=== PATIENT | male | born 1945 | race Caucasian/White ===

== ENCOUNTER 2018-05-31 13:25 | Inpatient (IN) ==
[2018-05-31] MEDS ORDERED: SODIUM CHLORIDE 0.9% 500 ML IV SCH ×2 (14:00→22:00)
[2018-05-31] MEDS ORDERED: dilTIAZem HCl 5 MG/ML 5 ML VIAL IV STA ×2 (14:00→15:41)
[2018-05-31 14:09] LABS: Basophils # (auto) 0.05 K/uL (0-0.2); Basophils % (auto) 0.5 %; Eosinophils # (auto) 0.02 K/uL (0-0.5); Eosinophils % (auto) 0.2 %; Hematocrit (blood only) 41.4 % (42-52); Immature Granulocytes # (auto) 0.02 K/uL (0.00-0.02); Immature Granulocytes % (auto) 0.2 %; Lymphocytes # (auto) 1.25 K/uL (1.2-3.4); Lymphocytes % (auto) 13.4 %; Mean Corpuscular Hgb Conc 33.8 g/dL (32-36); Mean Platelet Volume 9.7 fL (7.4-10.4); Monocytes # (auto) 0.69 K/uL (0.11-0.59); Monocytes % (auto) 7.4 %; Neutrophils # (auto) 7.32 K/uL (1.4-6.5); Neutrophils % (auto) 78.3 %; Platelet Count 399 K/uL (130-400); RDW Coefficient of Variation 15.3 % (11.5-14.5); RDW Standard Deviation 41.8 fL (36.4-46.3); Red Blood Count 5.52 M/uL (4.7-6.1); White Blood Count 9.35 K/uL (4.8-10.8)
[2018-05-31 14:23] LABS: INR 1.7 (0.9-1.1); Partial Thromboplastin Ratio 1.3; Partial Thromboplastin Time 32.8 Seconds (21.0-31.0); Prothrombin Time 17.1 Seconds (9.0-12.0)
[2018-05-31 14:24] LABS: Albumin Level 3.3 gm/dl (3.4-5.0); BUN Creatinine Ratio 24.4 (10-20); Creatinine Clr Calc Pharmacy 52.7 ml/min; Est GFR (African American) 58.9; Est GFR (Non-African American) 50.8; Magnesium 2.2 mg/dl (1.8-2.4); Potassium 4.5 mmol/L (3.5-5.1)
--- NOTE | 2018-05-31 14:31 | XRay Report ---
XR chest 1V portable CLINICAL HISTORY: weakness dyspnea COMPARISON STUDY: No previous studies for comparison. FINDINGS: Moderate cardiomegaly. Prior median sternotomy. Right upper lobe infiltrate. Minimal infilt rative change right base. Left lung is clear. IMPRESSION: 1. Right upper lobe infiltrate. 2. Minimal interstitial infiltrate right base. 3. Mild cardia megaly. The above report was generated using voice recognition software. It may contain grammatical, syntax or spelling errors. Electronically signed by: Singh Case M.D. 05/31/2018 2:30 PM
[2018-05-31 14:36] LABS: Albumin Globulin Ratio 0.7 (0.9-2); Bilirubin,Total 1.7 mg/dl (0.2-1); Globulin 4.4 gm/dl (2.5-4.0); Total Protein 7.7 gm/dl (6.4-8.2); Troponin I 0.128 ng/ml (0-0.045)
--- NOTE | 2018-05-31 14:37 | Emergency Department Note ---
Entered by Kevin Newell acting as a scribe for History of Present Illness General Chief complaint: Cardiac Assessment Stated complaint: AFIB Source: patient Limitations: no limitations History of Present Illness Provider complaint: Palpitations Onset (ago): week(s) (1) Location: chest Pain Consistency: + constant Maximum Pain Intensity: 6 Quality: + other (Palpitations) Associated symptoms: + shortness of breath Treatments prior to arrival: none The patient is a 72 year old male who presents to the Emergency Room with complaints of constant palpitations for the past week. The patient states that "My a-fib and shortness of breath has been driving me crazy." He notes that he developed influenza-like symptoms such as fever, cough, diarrhea, and vomiting 1 week ago, which is when his current symptoms began. He has gone into atrial fibrillation intermittently for the past several years and knows when he goes into the irregular rhythm. He has felt like he has been in atrial fibrillation for the past week. He has never been cardioverted to resolve his atrial fibrillation. The patient has a significant cardiac history including his first heart attack at 37 years of age. He has had cardiac bypass surgery as well. The patient is on Coumadin. He is a former smoker. Home Medications Home Medications Medication Instructions Recorded Confirmed Type aspirin [Aspirin Low Dose] 81 mg PO DAILY 05/31/18 05/31/18 History digoxin [Digox] 250 mcg PO DAILY 05/31/18 05/31/18 History escitalopram oxalate [Lexapro] 20 mg PO DAILY 05/31/18 05/31/18 History fluticasone [Flonase Allergy 2 spray INTRANASAL DAILY 05/31/18 05/31/18 History Relief] furosemide [Lasix] 40 mg PO DAILY PRN 05/31/18 05/31/18 History insulin glargine [Lantus U-100 100 unit SUBCUT QPM 05/31/18 05/31/18 History Insulin] isosorbide mononitrate 30 mg PO BID 05/31/18 05/31/18 History lisinopril 20 mg PO DAILY 05/31/18 05/31/18 History lorazepam [Ativan] 1 mg PO Q8 PRN 05/31/18 05/31/18 History metformin [Glucophage] 1,000 mg PO BID 05/31/18 05/31/18 History metoprolol tartrate 100 mg PO BID 05/31/18 05/31/18 History morphine [MS Contin] 30 mg PO TID 05/31/18 05/31/18 History nitroglycerin [Nitrostat] 0.4 mg SUBLINGUAL UD PRN 05/31/18 05/31/18 History warfarin [Coumadin] 5 mg PO [id number] 05/31/18 05/31/18 History warfarin [Coumadin] 7.5 mg PO WK 05/31/18 05/31/18 History Allergies Allergy/AdvReac Type Severity Reaction Status Date / Time simvastatin AdvReac Severe leg pain Verified 05/31/18 16:23 Past Med/Surg History Medical History Anxiety Asthma CHF (congestive heart failure) COPD (chronic obstructive pulmonary disease) Depression Diabetes Hypertension Myocardial infarction Surgical History Hx of heart bypass surgery Social History marital status: Current Living Situation: Spouse current occupational status: retired Other Information That Helps Us Care for You: No Feels Safe at Home: Yes Safety Concerns: Feels Safe At This Time Smoking Status: Former smoker Do You Dip or Chew Tobacco: No Second Hand Exposure: No Tobacco Cessation Education Requested by Patient: No Hx Alcohol Use: No Hx Substance Use: No Beliefs That Will Affect Care: None Preferred Language: Jordanian Communication Ability: Effective Patient Access Associate Required: No Review of Systems See HPI for pertinent positives & negatives. and A total of 10 systems reviewed and were otherwise negative Physical Exam Vital Signs Vital Signs - 24 hr 05/31/18 13:28 05/31/18 13:40 05/31/18 13:45 Temperature 36.6 C Temperature Source Oral Sepsis Recent Fever Within 48 Hours No Sepsis New/Unexplained Change in Mental Status No Sepsis Action Taken by Nursing No Action Required Pulse Rate 101 H Pulse Rate [Left Finger] Pulse Rhythm [Left Finger] Pulse Strength [Left Finger] Respiratory Rate 20 Respiratory Effort / Characteristics Short of Breath Respiratory Depth Normal Respiratory Pattern Blood Pressure 124/99 Blood Pressure [Right Arm] Blood Pressure Mean 107 Blood Pressure Mean [Right Arm] Blood Pressure Position [Right Arm] Pulse Oximetry 97 96 Oxygen Delivery Method Room Air Room Air 05/31/18 13:49 05/31/18 13:54 05/31/18 14:00 Temperature Temperature Source Sepsis Recent Fever Within 48 Hours Sepsis New/Unexplained Change in Mental Status Sepsis Action Taken by Nursing Pulse Rate 129 H 148 H 138 H Pulse Rate [Left Finger] Pulse Rhythm [Left Finger] Pulse Strength [Left Finger] Respiratory Rate 14 19 23 Respiratory Effort / Characteristics Respiratory Depth Respiratory Pattern Blood Pressure 142/86 H Blood Pressure [Right Arm] Blood Pressure Mean 104 Blood Pressure Mean [Right Arm] Blood Pressure Position [Right Arm] Pulse Oximetry 97 97 97 Oxygen Delivery Method Room Air Room Air Room Air 05/31/18 14:31 05/31/18 15:00 05/31/18 15:02 Temperature Temperature Source Sepsis Recent Fever Within 48 Hours Sepsis New/Unexplained Change in Mental Status Sepsis Action Taken by Nursing Pulse Rate 117 H 114 H 120 H Pulse Rate [Left Finger] Pulse Rhythm [Left Finger] Pulse Strength [Left Finger] Respiratory Rate 18 23 26 H Respiratory Effort / Characteristics Respiratory Depth Respiratory Pattern Blood Pressure 128/117 H 114/75 Blood Pressure [Right Arm] Blood Pressure Mean 120 88 Blood Pressure Mean [Right Arm] Blood Pressure Position [Right Arm] Pulse Oximetry 97 97 95 Oxygen Delivery Method Room Air Room Air Room Air 05/31/18 15:03 05/31/18 15:31 05/31/18 16:00 Temperature Temperature Source Sepsis Recent Fever Within 48 Hours Sepsis New/Unexplained Change in Mental Status Sepsis Action Taken by Nursing Pulse Rate 117 H 130 H 124 H Pulse Rate [Left Finger] Pulse Rhythm [Left Finger] Pulse Strength [Left Finger] Respiratory Rate 19 15 20 Respiratory Effort / Characteristics Respiratory Depth Respiratory Pattern Blood Pressure 104/75 113/82 Blood Pressure [Right Arm] Blood Pressure Mean 84 92 Blood Pressure Mean [Right Arm] Blood Pressure Position [Right Arm] Pulse Oximetry 95 93 96 Oxygen Delivery Method 05/31/18 16:01 05/31/18 16:09 05/31/18 16:30 Temperature Temperature Source Sepsis Recent Fever Within 48 Hours Sepsis New/Unexplained Change in Mental Status Sepsis Action Taken by Nursing Pulse Rate 136 H 121 H Pulse Rate [Left Finger] 116 H Pulse Rhythm [Left Finger] Regular Pulse Strength [Left Finger] Normal Respiratory Rate 16 20 15 Respiratory Effort / Characteristics Non-Labored Respiratory Depth Normal Respiratory Pattern Regular Blood Pressure 105/78 Blood Pressure [Right Arm] 105/78 Blood Pressure Mean 87 Blood Pressure Mean [Right Arm] 87 Blood Pressure Position [Right Arm] Lying Pulse Oximetry 93 96 93 Oxygen Delivery Method Room Air 05/31/18 16:32 05/31/18 17:20 05/31/18 17:30 Temperature Temperature Source Sepsis Recent Fever Within 48 Hours Sepsis New/Unexplained Change in Mental Status Sepsis Action Taken by Nursing Pulse Rate 135 H 120 H Pulse Rate [Left Finger] Pulse Rhythm [Left Finger] Pulse Strength [Left Finger] Respiratory Rate 15 19 Respiratory Effort / Characteristics Spontaneous Respiratory Depth Normal Respiratory Pattern Regular Blood Pressure 134/78 Blood Pressure [Right Arm] Blood Pressure Mean 96 Blood Pressure Mean [Right Arm] Blood Pressure Position [Right Arm] Pulse Oximetry 91 96 Oxygen Delivery Method Room Air 05/31/18 17:44 05/31/18 18:00 05/31/18 18:01 Temperature Temperature Source Sepsis Recent Fever Within 48 Hours Sepsis New/Unexplained Change in Mental Status Sepsis Action Taken by Nursing Pulse Rate 130 H 127 H 122 H Pulse Rate [Left Finger] Pulse Rhythm [Left Finger] Pulse Strength [Left Finger] Respiratory Rate 20 22 23 Respiratory Effort / Characteristics Respiratory Depth Respiratory Pattern Blood Pressure 115/91 87/82 L Blood Pressure [Right Arm] Blood Pressure Mean 99 83 Blood Pressure Mean [Right Arm] Blood Pressure Position [Right Arm] Pulse Oximetry 97 96 94 Oxygen Delivery Method 05/31/18 18:30 05/31/18 19:06 05/31/18 20:20 Temperature Temperature Source Sepsis Recent Fever Within 48 Hours Sepsis New/Unexplained Change in Mental Status Sepsis Action Taken by Nursing Pulse Rate 117 H 113 H Pulse Rate [Left Finger] Pulse Rhythm [Left Finger] Pulse Strength [Left Finger] Respiratory Rate 19 20 Respiratory Effort / Characteristics Non-Labored SOB on Exertion Respiratory Depth Normal Respiratory Pattern Blood Pressure 119/86 Blood Pressure [Right Arm] Blood Pressure Mean Blood Pressure Mean [Right Arm] Blood Pressure Position [Right Arm] Pulse Oximetry 93 94 Oxygen Delivery Method Room Air Room Air Room Air 05/31/18 20:26 05/31/18 20:29 05/31/18 21:09 Temperature 36.9 C Temperature Source Oral Sepsis Recent Fever Within 48 Hours Sepsis New/Unexplained Change in Mental Status Sepsis Action Taken by Nursing Pulse Rate 135 H 135 H Pulse Rate [Left Finger] 135 H Pulse Rhythm [Left Finger] Irregular Pulse Strength [Left Finger] Respiratory Rate 22 Respiratory Effort / Characteristics SOB on Exertion Respiratory Depth Respiratory Pattern Blood Pressure Blood Pressure [Right Arm] 143/65 H Blood Pressure Mean Blood Pressure Mean [Right Arm] 91 Blood Pressure Position [Right Arm] Lying Pulse Oximetry 99 Oxygen Delivery Method Room Air GENERAL: Patient is awake alert in no acute distress patient is resting comfortably and showing no signs of anxiety EYES: The conjunctivae are clear. The pupils are round and reactive. EARS, NOSE, MOUTH AND THROAT: The nose is without any evidence of any deformity. Mucous membranes are moist tongue is midline NECK: The neck is nontender and supple. RESPIRATORY: Normal respiratory effort is noted. There are rales at both bases. CARDIOVASCULAR: Irregular rhythm with tachycardic rate was noted. No definite murmur was noted. GASTROINTESTINAL: The abdomen is soft. Bowel sounds are present in all quadrants. Abdomen is nontender PELVIS: The Pelvis is stable. No tenderness to palpation is noted. BACK: No midline tenderness or or step-off noted range of motion in flexion extension as well as rotation no signs of muscle spasm noted MUSCULOSKELETAL/EXTREMITIES: There is no evidence of gross deformity full range of motion is noted in the hips and shoulders SKIN: There is no obvious evidence of any rash. Pedal edema was noted bilaterally. NEUROLOGIC: Patient is awake alert and oriented x3. Course 1354: Past medical records reviewed. The patient was evaluated in room B7, and a complete history and physical examination were performed. 1539: I updated the patient at this time. He is agreeable to an inpatient stay. 1541: I reviewed the patient's case with Sonal Johnson PA-C. She will evaluate the patient for further management. Consultations Consultation #1: 1541: I reviewed the patient's case with Sonal Johnson PA-C. She will evaluate the patient for further management. Administered Medications Doxycycline Hyclate (Vibramycin) 100 mg PO BID [facility] Stop: 06/07/18 20:59 Last Admin: 05/31/18 21:11 Dose: 100 mg Heparin Sodium (Porcine) (Heparin Sodium (Porcine)) 5,000 units SQ Q8 [facility] Stop: 06/30/18 21:59 Last Admin: 05/31/18 21:09 Dose: 5,000 units Sodium Chloride (Nss) 500 mls @ 80 mls/hr IV .Q6H15M [facility] Stop: 06/01/18 04:14 Last Admin: 05/31/18 22:01 Dose: 80 mls/hr Insulin Aspart (Novolog Flexpen) 0 units SC ACHS [facility]; Protocol Stop: 06/30/18 20:59 Last Admin: 05/31/18 21:13 Dose: 9 units Isosorbide Mononitrate (Imdur Extended Rel) 30 mg PO BID [facility] Stop: 06/30/18 20:59 Last Admin: 05/31/18 21:11 Dose: 30 mg Metoprolol Tartrate (Lopressor) 100 mg PO BID [facility] Stop: 06/30/18 20:59 Last Admin: 05/31/18 21:11 Dose: 100 mg Warfarin Sodium (Coumadin) 6 mg PO DAILY@1600 [facility] Stop: 06/30/18 19:53 Last Admin: 05/31/18 21:10 Dose: 6 mg Discontinued Medications Diltiazem HCl (Cardizem) 10 mg IV NOW STA Stop: 05/31/18 14:01 Last Admin: 05/31/18 14:09 Dose: 10 mg Diltiazem HCl (Cardizem) 10 mg IV NOW STA Stop: 05/31/18 15:42 Last Admin: 05/31/18 16:00 Dose: 10 mg Sodium Chloride (Nss) 500 mls @ 999 mls/hr IV .Q31M [facility] Stop: 05/31/18 14:30 Last Infusion: 05/31/18 14:36 Dose: 0 mls/hr Admin: 05/31/18 14:10 Dose: 999 mls/hr Sodium Chloride (Nss 1000ml) 500 mls @ 999 mls/hr IV .Q31M ONE Stop: 05/31/18 15:51 Last Infusion: 05/31/18 15:55 Dose: 0 mls/hr Admin: 05/31/18 15:32 Dose: 999 mls/hr Levofloxacin/Dextrose (Levaquin/D5w) 750 mg in 150 mls @ 100 mls/hr IV NOW STA Stop: 05/31/18 17:10 Last Infusion: 05/31/18 17:32 Dose: 0 mls/hr Admin: 05/31/18 16:00 Dose: 100 mls/hr Digoxin 125 mcg/ Syringe 10 mls @ 2 mls/min IV NOW STA Stop: 05/31/18 20:35 Last Admin: 05/31/18 21:09 Dose: 2 mls/min Insulin Glargine (Lantus Solostar Pen) 20 units SC NOW STA; Protocol Stop: 05/31/18 21:02 Last Admin: 05/31/18 21:43 Dose: 20 units Insulin Human Regular (Novolin R U-100 Per Unit) 10 units IV NOW STA Stop: 05/31/18 18:47 Last Admin: 05/31/18 18:57 Dose: 10 units Medical Decision Making Differential Diagnosis Differential diagnosis: Etiologies such as shingles, musculoskeletal pain, pericarditis, myocarditis, cardiac ischemia, pericardial tamponade, pneumonia, pneumothorax, pleural effusion, hemothorax, pleurisy, aortic pathology, pulmonary embolism, intra- abdominal process, as well as others were considered. Medical Records Attestation: I reviewed the patient's medical records. Home Medications Current Medication List: was personally reviewed by me Laboratory Data Attestation: I reviewed the patient's lab results. Result diagrams: 05/31/18 13:45 05/31/18 20:24 Lab Results 05/31/18 05/31/18 05/31/18 Range/Units 13:45 13:45 13:45 WBC 9.35 (4.8-10.8) K/uL RBC 5.52 (4.7-6.1) M/uL Hgb 14.0 (14.0-18.0) g/dL Hct 41.4 L (42-52) % MCV 75.0 L (80-100) fL MCH 25.4 (25-34) pg MCHC 33.8 (32-36) g/dL RDW Std Deviation 41.8 (36.4-46.3) fL RDW Coeff of Yandy 15.3 H (11.5-14.5) % Plt Count 399 (130-400) K/uL MPV 9.7 (7.4-10.4) fL Immature Gran % (Auto) 0.2 % Neut % (Auto) 78.3 % Lymph % (Auto) 13.4 % Park % (Auto) 7.4 % Eos % (Auto) 0.2 % Baso % (Auto) 0.5 % Immature Gran # (Auto) 0.02 (0.00-0.02) K/uL Neut # (Auto) 7.32 H (1.4-6.5) K/uL Lymph # (Auto) 1.25 (1.2-3.4) K/uL Park # (Auto) 0.69 H (0.11-0.59) K/uL Eos # (Auto) 0.02 (0-0.5) K/uL Baso # (Auto) 0.05 (0-0.2) K/uL PT 17.1 H (9.0-12.0) Seconds INR 1.7 H (0.9-1.1) APTT 32.8 H (21.0-31.0) Seconds PTT Ratio 1.3 Sodium 129 L (136-145) mmol/L Potassium 4.5 (3.5-5.1) mmol/L Chloride 96 L (98-107) mmol/L Carbon Dioxide 22 (21-32) mmol/L Anion Gap 11.0 (3-11) BUN 33 H (7-18) mg/dl Creatinine 1.37 (0.6-1.4) mg/dl Est Cr Clr Drug Dosing 52.7 ml/min Est GFR ( Amer) 58.9 Est GFR (Non-Af Amer) 50.8 BUN/Creatinine Ratio 24.4 H (10-20) Glucose 412 H* (70-99) mg/dl POC Glucose (70-99) Calcium 9.0 (8.5-10.1) mg/dl Magnesium 2.2 (1.8-2.4) mg/dl Total Bilirubin 1.7 H (0.2-1) mg/dl AST 20 (15-37) U/L ALT 28 (12-78) U/L Alkaline Phosphatase 80 (45-117) U/L Troponin I 0.128 H* (0-0.045) ng/ml Total Protein 7.7 (6.4-8.2) gm/dl Albumin 3.3 L (3.4-5.0) gm/dl Globulin 4.4 H (2.5-4.0) gm/dl Albumin/Globulin Ratio 0.7 L (0.9-2) Beta-Hydroxybutyric Acd 16.87 H (0.2-2.81) mg/dl TSH 1.670 (0.300-4.500) uIu/ml Urine Color Urine Appearance (Clear) Urine pH (4.5-7.5) Ur Specific [place] (1.000-1.030) Urine Protein (Negative) Urine Glucose (UA) (Negative) Urine Ketones (Negative) Urine Blood (Negative) Urine Nitrite (Negative) Urine Bilirubin (Negative) Urine Urobilinogen (Negative) Ur Leukocyte Esterase (Negative) Digoxin (0.8-2.0) ng/ml 05/31/18 05/31/18 05/31/18 Range/Units 13:45 16:33 20:23 WBC (4.8-10.8) K/uL RBC (4.7-6.1) M/uL Hgb (14.0-18.0) g/dL Hct (42-52) % MCV (80-100) fL MCH (25-34) pg MCHC (32-36) g/dL RDW Std Deviation (36.4-46.3) fL RDW Coeff of Yandy (11.5-14.5) % Plt Count (130-400) K/uL MPV (7.4-10.4) fL Immature Gran % (Auto) % Neut % (Auto) % Lymph % (Auto) % Park % (Auto) % Eos % (Auto) % Baso % (Auto) % Immature Gran # (Auto) (0.00-0.02) K/uL Neut # (Auto) (1.4-6.5) K/uL Lymph # (Auto) (1.2-3.4) K/uL Park # (Auto) (0.11-0.59) K/uL Eos # (Auto) (0-0.5) K/uL Baso # (Auto) (0-0.2) K/uL PT (9.0-12.0) Seconds INR (0.9-1.1) APTT (21.0-31.0) Seconds PTT Ratio Sodium (136-145) mmol/L Potassium (3.5-5.1) mmol/L Chloride (98-107) mmol/L Carbon Dioxide (21-32) mmol/L Anion Gap (3-11) BUN (7-18) mg/dl Creatinine (0.6-1.4) mg/dl Est Cr Clr Drug Dosing ml/min Est GFR ( Amer) Est GFR (Non-Af Amer) BUN/Creatinine Ratio (10-20) Glucose (70-99) mg/dl POC Glucose 218 H (70-99) Calcium (8.5-10.1) mg/dl Magnesium (1.8-2.4) mg/dl Total Bilirubin (0.2-1) mg/dl AST (15-37) U/L ALT (12-78) U/L Alkaline Phosphatase (45-117) U/L Troponin I (0-0.045) ng/ml Total Protein (6.4-8.2) gm/dl Albumin (3.4-5.0) gm/dl Globulin (2.5-4.0) gm/dl Albumin/Globulin Ratio (0.9-2) Beta-Hydroxybutyric Acd (0.2-2.81) mg/dl TSH (0.300-4.500) uIu/ml Urine Color Yellow Urine Appearance Clear (Clear) Urine pH 5.0 (4.5-7.5) Ur Specific [place] 1.034 H (1.000-1.030) Urine Protein Negative (Negative) Urine Glucose (UA) 3+ H (Negative) Urine Ketones 1+ H (Negative) Urine Blood Negative (Negative) Urine Nitrite Negative (Negative) Urine Bilirubin Negative (Negative) Urine Urobilinogen Negative (Negative) Ur Leukocyte Esterase Negative (Negative) Digoxin < 0.1 L (0.8-2.0) ng/ml 05/31/18 Range/Units 20:24 WBC (4.8-10.8) K/uL RBC (4.7-6.1) M/uL Hgb (14.0-18.0) g/dL Hct (42-52) % MCV (80-100) fL MCH (25-34) pg MCHC (32-36) g/dL RDW Std Deviation (36.4-46.3) fL RDW Coeff of Yandy (11.5-14.5) % Plt Count (130-400) K/uL MPV (7.4-10.4) fL Immature Gran % (Auto) % Neut % (Auto) % Lymph % (Auto) % Park % (Auto) % Eos % (Auto) % Baso % (Auto) % Immature Gran # (Auto) (0.00-0.02) K/uL Neut # (Auto) (1.4-6.5) K/uL Lymph # (Auto) (1.2-3.4) K/uL Park # (Auto) (0.11-0.59) K/uL Eos # (Auto) (0-0.5) K/uL Baso # (Auto) (0-0.2) K/uL PT (9.0-12.0) Seconds INR (0.9-1.1) APTT (21.0-31.0) Seconds PTT Ratio Sodium 135 L (136-145) mmol/L Potassium 3.9 (3.5-5.1) mmol/L Chloride 102 (98-107) mmol/L Carbon Dioxide 25 (21-32) mmol/L Anion Gap 7.0 (3-11) BUN 31 H (7-18) mg/dl Creatinine 1.22 (0.6-1.4) mg/dl Est Cr Clr Drug Dosing 59.2 ml/min Est GFR ( Amer) 67.7 Est GFR (Non-Af Amer) 58.5 BUN/Creatinine Ratio 25.2 H (10-20) Glucose 225 H (70-99) mg/dl POC Glucose (70-99) Calcium 8.6 (8.5-10.1) mg/dl Magnesium (1.8-2.4) mg/dl Total Bilirubin (0.2-1) mg/dl AST (15-37) U/L ALT (12-78) U/L Alkaline Phosphatase (45-117) U/L Troponin I 0.161 H* (0-0.045) ng/ml Total Protein (6.4-8.2) gm/dl Albumin (3.4-5.0) gm/dl Globulin (2.5-4.0) gm/dl Albumin/Globulin Ratio (0.9-2) Beta-Hydroxybutyric Acd (0.2-2.81) mg/dl TSH (0.300-4.500) uIu/ml Urine Color Urine Appearance (Clear) Urine pH (4.5-7.5) Ur Specific [place] (1.000-1.030) Urine Protein (Negative) Urine Glucose (UA) (Negative) Urine Ketones (Negative) Urine Blood (Negative) Urine Nitrite (Negative) Urine Bilirubin (Negative) Urine Urobilinogen (Negative) Ur Leukocyte Esterase (Negative) Digoxin (0.8-2.0) ng/ml Imaging Data Attestation: I personally reviewed and interpreted this imaging study as follows : Radiologist's Impression: XR chest 1V portable CLINICAL HISTORY: weakness dyspnea COMPARISON STUDY: No previous studies for comparison. FINDINGS: Moderate cardiomegaly. Prior median sternotomy. Right upper lobe infiltrate. Minimal infiltrative change right base. Left lung is clear. IMPRESSION: 1. Right upper lobe infiltrate. 2. Minimal interstitial infiltrate right base. 3. Mild cardia megaly. The above report was generated using voice recognition software. It may contain grammatical, syntax or spelling errors. Electronically signed by: Singh Case M.D. 05/31/2018 2:30 PM ECG Data Attestation: I personally reviewed and interpreted this ECG as follows: Indication: chest pain Rate (beats per minute): 145 Rhythm: atrial fibrillation Findings: + PVC (frequent); no ST depression and no ST elevation Comparison ECG Date: no prior available Blood Pressure Blood Pressure Findings: Low blood pressure Blood Pressure Disposition: did not require urgent referral MDM Narrative The patient is a 72-year-old male who presented to the emergency department with difficulty breathing cough and palpitations. The patient was found to have rapid atrial fibrillation. Was given multiple doses of IV fluids and IV Cardizem. He was reevaluated multiple times and continued to improve. I discussed the patient's laboratory and radiographic studies with him. He was also given IV antibiotics for presumed pneumonia that was noted on chest x-ray. The patient was feeling much better on subsequent reevaluation. I discussed the patient's condition with the on-call [facility] hospitalist group. They have agreed to evaluate the patient in the emergency department for further management and disposition. The patient was reevaluated multiple times. I discussed his condition with his spouse as well. Impression & Plan Atrial fibrillation with RVR, Pneumonia, Hyperglycemia, Elevated troponin Critical Care Time I have personally spent greater than 55 minutes of critical care time in the direct management of this patient. This includes bedside care, interpretation of diagnostic studies, and testing, discussion with consultants, patient, and family members, and other required patient management activities. This 55 minutes is in excess of all separately billable procedures. Critical Care Time: Yes Total Critical Care Time: 55 Discharge Plan Visit Data *Final* Discharge Date/Time: 05/31/18 19:06 Chief Complaint: Cardiac Assessment Stated Complaint: AFIB ED Provider: Matt Serrano Discharge Problem: Atrial fibrillation with RVR, Pneumonia, Hyperglycemia, Elevated troponin Patient Disposition: Admitted As Inpatient Discharge Instructions Interventions: ED Discharge Assessment Last Done: 05/31/18 19:06 The scribe's documentation has been prepared under my direction and personally reviewed by me in its entirety. I confirm that the note above accurately reflects all work, treatment, procedures, and medical decision making performed by me.
[2018-05-31] MEDS ORDERED: SODIUM CHLORIDE 0.9% 1000ML 500 ML IV ONE (15:21)
[2018-05-31] MEDS ORDERED: LEVOFLOXACIN/D5W 750 MG/150 ML BAG IV STA (15:41)
[2018-05-31 17:10] LABS: Appearance Urine Clear (Clear); Bilirubin Urine Negative (Negative); Color Urine Yellow; Glucose Urine UA 3+ (Negative); Ketones Urine 1+ (Negative); Leukocyte Esterase Urine Negative (Negative); Nitrite Urine Negative (Negative); Protein Urine Negative (Negative); Specific Gravity Urine 1.034 (1.000-1.030); Urobilinogen Urine Negative (Negative)
--- NOTE | 2018-05-31 17:46 | History & Physical Report ---
Date of Service May 31, 2018 Assessment & Plan (1) Atrial fibrillation with RVR: Present on admission with palpitation associated with SOB with HR in 130's possible trigger due to Pneumonia EKG showed Afib with RVR Received cardizem 10mg IV x2 in the ER Not sure if pt has been taking his diltiazem/metoprolol and imdur and digoxin correctely Will continue oral med Will get an echo Consult cardiology Continue coumadin for now Continue monitor in tele monitor (2) Pneumonia: CXR on admission showed right upper lobe infiltrate with minimal interstitial infiltrate right base. Received Levaquin in the ER Will check blood cx Will change Levaquin to doxycycline due to prolong QTC (3) Hyperglycemia: (4) Uncontrolled diabetes mellitus: Last Hba1c 10.8 on (12/02) Will give insulin 10 unitx1 now Will consult pharmacy for glycemic management Check Hba1c Consult diabetic education (5) Elevated troponin: Mostly related to Afib RVR EKG showed Afib with RVR Will trend troponin Continue metoprolol and aspirin Statin intolerance Check ECHO in am (6) HTN (hypertension): BP in the low side after received cardizem continue monitor BP QTC Prolongation QTC 515 on EKG Will hold med that can cause increase QTC Depression/Anxiety Has not been taking the lexapro Will hold Lexapro for now due to prolong QTC On Ativan PRN at home DVT px n coumadin Heparin for now until inr above 2 CODE status FULL CODE History of Present Illness Chief Complaint: Palpitation/SOB Primary Care Provider: Chai Chang MD 72 year old male with PMH of uncontrolled DM, dyslipidemia, CAD, Afib on coumadin HTN present to the Emergency Room with complaints of constant palpitations for the past week. Pt said that about a week and half ago, he developed upper respiratory infection associated with SOB. He said that since then, he had been feeling a pounding in his chest. He said that lately his symptoms have been getting worst associated with worsening SOB. Pt said that he runs out of breath with exertion. He said that the cough sometimes is productive. He is not sure if he is taking his med correctly. He only brought 6 meds with him in a bag. He does not have the metoprolol and diltiazem. only taking 1 tab of digoxin daily and only taking imdur daily instead of BID. He is not sure how lantus that he is taking. Denies any chest pain, fever, chills and dizziness. Allergies Allergy/AdvReac Type Severity Reaction Status Date / Time simvastatin AdvReac Severe leg pain Verified 05/31/18 16:23 Home Medications Home Medications Medication Instructions Recorded Confirmed Type aspirin [Aspirin Low Dose] 81 mg PO DAILY 05/31/18 05/31/18 History digoxin [Digox] 250 mcg PO DAILY 05/31/18 05/31/18 History escitalopram oxalate [Lexapro] 20 mg PO DAILY 05/31/18 05/31/18 History fluticasone [Flonase Allergy 2 spray INTRANASAL DAILY 05/31/18 05/31/18 History Relief] furosemide [Lasix] 40 mg PO DAILY PRN 05/31/18 05/31/18 History insulin glargine [Lantus U-100 100 unit SUBCUT QPM 05/31/18 05/31/18 History Insulin] isosorbide mononitrate 30 mg PO BID 05/31/18 05/31/18 History lisinopril 20 mg PO DAILY 05/31/18 05/31/18 History lorazepam [Ativan] 1 mg PO Q8 PRN 05/31/18 05/31/18 History metformin [Glucophage] 1,000 mg PO BID 05/31/18 05/31/18 History metoprolol tartrate 100 mg PO BID 05/31/18 05/31/18 History morphine [MS Contin] 30 mg PO TID 05/31/18 05/31/18 History nitroglycerin [Nitrostat] 0.4 mg SUBLINGUAL UD PRN 05/31/18 05/31/18 History warfarin [Coumadin] 5 mg PO 6XWK 05/31/18 05/31/18 History warfarin [Coumadin] 7.5 mg PO WK 05/31/18 05/31/18 History Past Med/Surg History Medical History Anxiety Asthma CHF (congestive heart failure) COPD (chronic obstructive pulmonary disease) Depression Diabetes Hypertension Myocardial infarction Surgical History Hx of heart bypass surgery Social History marital status: Current Living Situation: Spouse current occupational status: retired Other Information That Helps Us Care for You: No Feels Safe at Home: Yes Safety Concerns: Feels Safe At This Time Smoking Status: Former smoker Do You Dip or Chew Tobacco: No Second Hand Exposure: No Tobacco Cessation Education Requested by Patient: No Hx Alcohol Use: No Hx Substance Use: No Beliefs That Will Affect Care: None Preferred Language: Burmese Communication Ability: Effective Ignition Expert Required: No Review of Systems All systems reviewed & are unremarkable except as noted in HPI & below Physical Exam 2 Vital Signs (Past 24 Hours): Last Vital Signs Temp 36.6 C 05/31/18 13:28 Pulse 135 H 05/31/18 16:32 Resp 15 05/31/18 16:32 BP 134/78 05/31/18 16:32 Pulse Ox 91 05/31/18 16:32 Physical Exam: General- No acute distress Head- atraumatic Eyes- PERRL, EOMI, ENT- oropharynx clear Neck- supple, no JVD Lungs- clear to auscultation Heart- irregular rhythm/tachycardia Abdomen- normal bowel sounds, soft, nontender Extremities- no calf tenderness Neuro- alert, oriented x 3; PERRL, EOMI; no facial palsy; no dysarthria Skin- warm & dry Results & Data Diagnostic Findings XR chest 1V portable CLINICAL HISTORY: weakness dyspnea COMPARISON STUDY: No previous studies for comparison. FINDINGS: Moderate cardiomegaly. Prior median sternotomy. Right upper lobe infiltrate. Minimal infiltrative change right base. Left lung is clear. IMPRESSION: 1. Right upper lobe infiltrate. 2. Minimal interstitial infiltrate right base. 3. Mild cardia megaly. The above report was generated using voice recognition software. It may contain grammatical, syntax or spelling errors. Electronically signed by: Singh Case M.D. 05/31/2018 2:30 PM Dictated: 05/31/18 1429 Transcribed: 05/31/18 1429 _ (1) Pneumonia Aspiration pneumonia type: Laterality: Lung location: Pneumonia type: due to unspecified organism
[2018-05-31] MEDS ORDERED: DEXTROSE 50% 50 ML SYRINGE IV PRN ×2 (18:42→19:54)
[2018-05-31] MEDS ORDERED: GLUCAGON FOR INJ 1 MG VIAL SQ PRN ×2 (18:42→19:54)
[2018-05-31] MEDS ORDERED: CARBOHYDRATES FOR HYPOGLYCEMIA PO PRN ×2 (18:42→19:54)
[2018-05-31] MEDS ORDERED: GLUCOSE 10 TABS/TUBE PO PRN ×2 (18:42→19:54)
[2018-05-31] MEDS ORDERED: GLUCOSE 40% GEL 15 GM TUBE PO PRN ×2 (18:42→19:54)
[2018-05-31] MEDS ORDERED: NovoLIN-R INSULIN PER UNIT CHARGE IV STA (18:46)
[2018-05-31] MEDS ORDERED: DIGOXIN 500 MCG/2 ML AMP IV ONE (19:54)
[2018-05-31] MEDS ORDERED: ALBUT/IPRATROP 3MG/0.5MG NEB 3 ML VIAL NEB PRN (19:54)
[2018-05-31] MEDS ORDERED: PHARMACY GLYCEMIC MGMT CONSULT PRN (20:26)
[2018-05-31] MEDS ORDERED: INSULIN REGULAR 250 UNITS in SODIUM CHLORIDE 0.9% 247.5 ML IV SCH (20:30)
[2018-05-31] MEDS ORDERED: DIGOXIN 125 MCG in SYRINGE 9.5 ML IV STA (20:31)
[2018-05-31] MEDS ORDERED: DOXYCYCLINE HYCLATE 100 MG CAP PO SCH (21:00)
[2018-05-31] MEDS ORDERED: INSULIN ASPART 100 UNITS/ML 3 ML PEN SC SCH ×2 (21:00)
[2018-05-31] MEDS ORDERED: INSULIN GLARGINE SOLOSTAR 100 UNITS/ML 3 ML PEN SC STA (21:01)
[2018-05-31 21:06] LABS: BUN Creatinine Ratio 25.2 (10-20); Calcium 8.6 mg/dl (8.5-10.1); Creatinine Clr Calc Pharmacy 59.2 ml/min; Est GFR (African American) 67.7; Est GFR (Non-African American) 58.5; Potassium 3.9 mmol/L (3.5-5.1)
[2018-05-31] MEDS: HEPARIN SOD 5,000 UNIT/0.5 ML VIAL SQ SCH (21:09)
[2018-05-31] MEDS: WARFARIN SOD 6 MG TAB PO SCH (21:10)
[2018-05-31] MEDS: ISOSORBIDE MONO EXTENDED REL 30 MG TABCR PO SCH (21:11)
[2018-05-31] MEDS: DOXYCYCLINE HYCLATE 100 MG CAP PO SCH (21:11)
[2018-05-31] MEDS: METOPROLOL TARTRATE 100 MG TAB PO SCH (21:11)
[2018-05-31] MEDS: INSULIN ASPART 100 UNITS/ML 3 ML PEN SC SCH ×2 (21:13→22:56)
[2018-05-31] MEDS ORDERED: METOPROLOL TARTRATE 1 MG/ML VIAL IV PRN (21:19)
[2018-05-31 21:23] LABS: Troponin I 0.161 ng/ml (0-0.045)
[2018-06-01 02:14] LABS: Hematocrit (blood only) 36.8 % (42-52); Mean Corpuscular Hgb Conc 32.6 g/dL (32-36); Mean Corpuscular Volume 74.3 fL (80-100); Mean Platelet Volume 9.2 fL (7.4-10.4); Platelet Count 367 K/uL (130-400); RDW Coefficient of Variation 15.2 % (11.5-14.5); RDW Standard Deviation 40.9 fL (36.4-46.3); Red Blood Count 4.95 M/uL (4.7-6.1); White Blood Count 8.55 K/uL (4.8-10.8)
[2018-06-01 02:21] LABS: INR 1.8 (0.9-1.1); Prothrombin Time 17.9 Seconds (9.0-12.0)
[2018-06-01 02:31] LABS: BUN Creatinine Ratio 24.6 (10-20); Calcium 8.2 mg/dl (8.5-10.1); Creatinine Clr Calc Pharmacy 59.7 ml/min; Est GFR (African American) 68.4; Potassium 3.9 mmol/L (3.5-5.1)
[2018-06-01 02:37] LABS: Troponin I 0.175 ng/ml (0-0.045)
[2018-06-01] MEDS: INSULIN ASPART 100 UNITS/ML 3 ML PEN SC SCH ×5 (05:05→21:31)
[2018-06-01] MEDS: HEPARIN SOD 5,000 UNIT/0.5 ML VIAL SQ SCH ×3 (06:04→21:32)
[2018-06-01 06:28] LABS: Estimated Average Glucose 303 mg/dl
[2018-06-01] MEDS ORDERED: INSULIN GLARGINE SOLOSTAR 100 UNITS/ML 3 ML PEN SC ONE (08:00)
[2018-06-01] MEDS: ISOSORBIDE MONO EXTENDED REL 30 MG TABCR PO SCH ×2 (08:38→21:31)
[2018-06-01] MEDS: METOPROLOL TARTRATE 100 MG TAB PO SCH ×2 (08:38→21:31)
[2018-06-01] MEDS: LISINOPRIL 20 MG TAB PO SCH (08:39)
[2018-06-01] MEDS: dilTIAZem HCL 120 MG CAPCR PO SCH (08:39)
[2018-06-01] MEDS: DOXYCYCLINE HYCLATE 100 MG CAP PO SCH ×2 (08:39→21:31)
--- NOTE | 2018-06-01 09:01 | Pharmacy Report ---
Glycemic Control Consultation - Date of Service June 01, 2018 - Scope Scope: Glycemic Pharmacist consulted by Dr Fuentes on 05/31/18 for glycemic control and to write orders per [facility] inpatient glycemic control protocol - Objective Weight: 105 kg Accuchecks BSG (last 24hrs): 05/31/18 05/31/18 05/31/18 13:45 20:23 20:24 Glucose 412 H* 225 H POC Glucose 218 H 05/31/18 06/01/18 06/01/18 22:55 01:57 04:58 Glucose 140 H POC Glucose 253 H 159 H 06/01/18 07:23 Glucose POC Glucose 188 H Laboratory Data (last 24hrs): 05/31/18 05/31/18 06/01/18 13:45 20:24 01:57 Potassium 4.5 3.9 3.9 Carbon Dioxide 22 25 25 Anion Gap 11.0 7.0 5.0 Creatinine 1.37 1.22 1.21 Est Cr Clr Drug Dosing 52.7 59.2 59.7 Beta-Hydroxybutyric Acd 16.87 H 06/01/18 07:59 Potassium Carbon Dioxide Anion Gap Creatinine Est Cr Clr Drug Dosing Beta-Hydroxybutyric Acd 5.37 H HbA1c: Hemoglobin A1c 12.2 % (4.5-5.6) H 06/01/18 02:01 - Recent Pertinent Medications Outpatient Anti-diabetic Regimen: * Lantus 100 units HS * A1c = 12.2 % 06/01/18 The patient is currently receiving: * Basal insulin: Lantus 20 units x 1 dose last night * Correctional Insulin: Novolog Correction per scale ACHS Goal Range: Low 110 mg/dL - High 140 mg/dL Correction Factor: 30 mg/dL/unit * Prandial insulin: Per carb ratio of 1 unit per 9 grams CHO consumed Risk Factors for Insulin Resistance: * Infection: PO Doxycycline for pneumonia * Diet: Type 2 DM - Assessment & Plan Assessment & Plan: ASSESSMENT: * 72 year old male admitted with Afib RVR & pneumonia * Uncontrolled type 2 diabetic, managed only on basal insulin at home, 100 units /day - but patient reports he has not been taking for some time now * Patient met with CDE and is agreeable to start taking his insulin at home upon discharge * Patient had 1 dose of Lantus last night, blood sugars above goal at this time * Will tighten CF and CR and give one time dose of Lantus (1/2 of home dose reported) and place on scale for further dosing as insulin needs are not known since patient has been non-compliant. Will titrate based on blood sugars. PLAN FOR INPATIENT GLYCEMIC CONTROL: * Basal insulin * Lantus 50 units SQ x1 dose then BID * BSG < 110mg/dl - 0 unit * BSG 110-140mg/dl - 30 units * BSG > 140mg/dl - 40 units * Bolus insulin * NovoLog per scale ACHS or Q6hrs while NPO * Goal Range: Low 110 mg/dL - High 140 mg/dL * TIGHTEN: Correction Factor: 20 mg/dL/unit * TIGHTEN: Nutritional / Prandial insulin per carb ratio of 1 unit per 6 grams CHO consumed * Please note that the plan above was derived based on current level of insulin resistance and hospital stress. These recommendations are appropriate for inpatient admission only. Plan of care upon discharge will need to be reassessed to avoid potential outpatient hypo/hyperglycemia. Thank you.
--- NOTE | 2018-06-01 09:46 | Cardiology Consultation ---
Date of Consultation June 01, 2018 Assessment & Plan (1) Atrial fibrillation with RVR: He presents now in atrial fibrillation with a rapid heart rate. By history that has been present for about a week, but he has a longer history of paroxysmal atrial fibrillation but is not required cardioversion. He is maintained on warfarin but he is subtherapeutic. He is on digoxin by history but his level is not detectable. My approach currently would be to try rate control although he is on high doses of medications already, although perhaps has not been on digoxin. I am little reluctant to convert his rhythm either pharmacologically or electrically due to his subtherapeutic INR on admission. If we cannot get his rate under control then a GABE guided cardioversion is probably the safest option. For the moment I am going to load him with digoxin , continue on his current dose of metoprolol and diltiazem. He should be properly anticoagulated with heparin until his INR rises above 2. (2) Elevated troponin: He has a slightly elevated troponin and a descending pattern, this is most consistent with demand ischemia from the rapid heart rate and hypertension and his flulike illness. I do not think there is evidence of an acute coronary event. I would not pursue this further at this time unless symptoms develop. (3) CAD (coronary artery disease): By history he has known coronary artery, I am not sure of the extent of it now but he seems to be doing well clinically and unless things change I would not pursue further evaluation (either stress testing or catheterization). He is getting an echocardiogram done today and we can look for wall motion abnormalities, etc. History of Present Illness Reason for Consultation: Atrial fibrillation, elevated troponin Attending Physician: Rigoberto Broderick MD History of Present Illness This is a very pleasant 72-year-old gentleman who is followed by Dr. Salter at [facility]. He has a history of paroxysmal atrial fibrillation and is maintained on warfarin (although subtherapeutic on arrival) and aspirin, as well as digoxin 0.25 mg daily, metoprolol tartrate 100 mg twice daily. He has developed flulike symptoms for about a week and felt that he was in atrial fibrillation with palpitations and shortness of breath. He therefore presented with atrial fibrillation a rapid heart rate. He received several doses of intravenous diltiazem in the emergency room and has now on low-dose oral diltiazem. He was also observed to have a slightly elevated troponin. He has a history of coronary artery disease including myocardial infarction at age 37 according to his history and bypass surgery in the past. He has a history of smoking but currently is not smoking. He evidently is not very compliant with his medications. Allergies Allergy/AdvReac Type Severity Reaction Status Date / Time simvastatin AdvReac Severe leg pain Verified 05/31/18 16:23 Home Medications Home Medications Medication Instructions Recorded Confirmed Type aspirin [Aspirin Low Dose] 81 mg PO DAILY 05/31/18 05/31/18 History digoxin [Digox] 250 mcg PO DAILY 05/31/18 05/31/18 History escitalopram oxalate [Lexapro] 20 mg PO DAILY 05/31/18 05/31/18 History fluticasone [Flonase Allergy 2 spray INTRANASAL DAILY 05/31/18 05/31/18 History Relief] furosemide [Lasix] 40 mg PO DAILY PRN 05/31/18 05/31/18 History insulin glargine [Lantus U-100 100 unit SUBCUT QPM 05/31/18 05/31/18 History Insulin] isosorbide mononitrate 30 mg PO BID 05/31/18 05/31/18 History lisinopril 20 mg PO DAILY 05/31/18 05/31/18 History lorazepam [Ativan] 1 mg PO Q8 PRN 05/31/18 05/31/18 History metformin [Glucophage] 1,000 mg PO BID 05/31/18 05/31/18 History metoprolol tartrate 100 mg PO BID 05/31/18 05/31/18 History morphine [MS Contin] 30 mg PO TID 05/31/18 05/31/18 History nitroglycerin [Nitrostat] 0.4 mg SUBLINGUAL UD PRN 05/31/18 05/31/18 History warfarin [Coumadin] 5 mg PO 6XWK 05/31/18 05/31/18 History warfarin [Coumadin] 7.5 mg PO WK 05/31/18 05/31/18 History Patient History Medical History Anxiety Asthma CHF (congestive heart failure) COPD (chronic obstructive pulmonary disease) Depression Diabetes Hypertension Myocardial infarction Surgical History Hx of heart bypass surgery Social History marital status: Current Living Situation: Spouse current occupational status: retired Other Information That Helps Us Care for You: No Feels Safe at Home: Yes Safety Concerns: Feels Safe At This Time Smoking Status: Former smoker Do You Dip or Chew Tobacco: No Second Hand Exposure: No Tobacco Cessation Education Requested by Patient: No Hx Alcohol Use: No Hx Substance Use: No Beliefs That Will Affect Care: None Communication Ability: Effective Review of Systems Negative for lightheadedness, dizziness, presyncope or syncope. Palpitations as described. Progressive dyspnea on exertion over the last week to 10 days, no exertional chest pain. No orthopnea or PND or peripheral edema. GI complaints are present including nausea and vomiting. No bleeding, on warfarin. No neurologic complaints such as TIA or stroke symptoms. Other systems negative. Physical Exam 2 Vital Signs (Past 24 Hours): Last Vital Signs Temp 36.5 C 06/01/18 08:01 Pulse 104 H 06/01/18 08:01 Resp 17 06/01/18 08:01 BP 116/72 06/01/18 08:01 Pulse Ox 98 06/01/18 08:01 Physical Exam: Constitutional: Alert, cooperative and in no distress. HEENT: Unremarkable Neck: No jugular venous distention, carotid pulses are irregular but otherwise normal and equal bilaterally without bruits. Pulmonary: Clear to auscultation bilaterally. Cardiac: Irregular rhythm with no murmur, gallop or rub. Abdomen: Soft, nontender with normal bowel sounds. Extremities: No edema. Distal pulses intact. Neurologic: No focal findings. Gait is steady. Skin: No rash, ecchymoses or petechiae. Results & Data Diagnostic Findings Telemetry: He has remained in atrial fibrillation since admission, the rate very fast at times (up to 150 bpm this morning).
[2018-06-01] MEDS ORDERED: DIGOXIN 250 MCG in SYRINGE 9 ML IV ONE (10:15)
[2018-06-01] MEDS ORDERED: DIGOXIN 250 MCG in SYRINGE 9 ML IV SCH (12:00)
[2018-06-01] MEDS: ASPIRIN 81 MG ECTAB PO SCH (12:02)
[2018-06-01] MEDS: DIGOXIN 0.25 MG TAB PO SCH (16:31)
[2018-06-01] MEDS: WARFARIN SOD 6 MG TAB PO SCH (16:32)
--- NOTE | 2018-06-01 18:34 | Hospitalist Progress Note ---
Date of Service June 01, 2018 Assessment & Plan (1) Atrial fibrillation with RVR: Likely precipitated by Pneumonia and Non Compliance Received Loading Digoxin Continue diltiazem, metoprolol INR subtherapeutic Continue Coumadin Monitor INR:1.8 today Heparin SQ until INR in therapeutic range Appreciate Cardiology Input (2) Pneumonia: CXR on admission showed right upper lobe infiltrate with minimal interstitial infiltrate right base. Received Levaquin in the ER Blood Culture: Pending Continue doxycycline (3) Hyperglycemia: (4) Uncontrolled diabetes mellitus: HbA1c: 12.2 Non compliance pharmacy for glycemic management Diabetic Education Continue Insulin therapy (5) Elevated troponin: Secondary to demand Ischemia 2/2 Afib RVR Troponin trending down ECHO: moderate global hypokinesis of LV Cardiology following CAD: Continue Aspirin, Metoprolol (6) HTN (hypertension): Stable monitor QTC Prolongation Monitor QTC Avoid QTC prolonging meds as able Depression/Anxiety Patient has not been taking the lexapro Will hold Lexapro for now due to prolong QTC On Ativan PRN at home DVT Px: On coumadin Code Status FULL CODE Subjective Patient is seen and examined at bedside Palpitations resolved Cough, dyspnea better today Denies chest pain Tachycardic today Physical Exam 2 Vital Signs (Past 24 Hours): Last Vital Signs Temp 36.6 C 06/01/18 15:30 Pulse 85 06/01/18 16:31 Resp 20 06/01/18 15:30 BP 104/64 06/01/18 15:30 Pulse Ox 96 06/01/18 15:30 Physical Exam: Physical Exam: Vitals signs as noted above General Appearance:Moderately built and nourished, no apparent distress Head: normocephalic, Atraumatic Eyes: normal inspection, EOMI Neck: supple, Trachea midline Respiratory/Chest: Normal breath sounds, CTA Cardiovascular: Irregularly Irregular, No murmur, +Tachycardia Abdomen/GI:Soft, Non tender, Bowel sounds present Extremities/Musculoskelatal:normal inspection, Trace pedal edema Neurologic/Psych:AAOX3, grossly no focal neurological deficits Skin: normal color, warm Results & Data Laboratory Results Short CBC 06/01/18 Range/Units 02:01 WBC 8.55 (4.8-10.8) K/uL Hgb 12.0 L (14.0-18.0) g/dL Hct 36.8 L (42-52) % Plt Count 367 (130-400) K/uL BMP 05/31/18 06/01/18 20:24 01:57 Sodium 135 L 135 L Potassium 3.9 3.9 Chloride 102 105 Carbon Dioxide 25 25 BUN 31 H 30 H Creatinine 1.22 1.21 Glucose 225 H 140 H Calcium 8.6 8.2 L Cardiac Enzymes 05/31/18 06/01/18 06/01/18 Range/Units 20:24 01:57 07:59 Troponin I 0.161 H* 0.175 H* 0.146 H* (0-0.045) ng/ml _ (1) Pneumonia Aspiration pneumonia type: Laterality: Lung location: Pneumonia type: due to unspecified organism
[2018-06-02] MEDS: HEPARIN SOD 5,000 UNIT/0.5 ML VIAL SQ SCH (05:36)
[2018-06-02 06:43] LABS: Hematocrit (blood only) 36.5 % (42-52); Hemoglobin 11.8 g/dL (14.0-18.0); Mean Corpuscular Hgb Conc 32.3 g/dL (32-36); Mean Corpuscular Volume 75.1 fL (80-100); Mean Platelet Volume 9.4 fL (7.4-10.4); Platelet Count 317 K/uL (130-400); RDW Coefficient of Variation 15.3 % (11.5-14.5); RDW Standard Deviation 41.9 fL (36.4-46.3); Red Blood Count 4.86 M/uL (4.7-6.1); White Blood Count 6.92 K/uL (4.8-10.8)
[2018-06-02 07:00] LABS: INR 2.2 (0.9-1.1)
[2018-06-02 07:08] LABS: BUN Creatinine Ratio 21.9 (10-20); Calcium 7.9 mg/dl (8.5-10.1); Creatinine Clr Calc Pharmacy 82.4 ml/min; Est GFR (African American) 86.2; Est GFR (Non-African American) 74.3; Magnesium 1.8 mg/dl (1.8-2.4); Potassium 3.7 mmol/L (3.5-5.1)
[2018-06-02] MEDS: METOPROLOL TARTRATE 100 MG TAB PO SCH ×2 (09:04→21:07)
[2018-06-02] MEDS: ASPIRIN 81 MG ECTAB PO SCH (09:04)
[2018-06-02] MEDS: DOXYCYCLINE HYCLATE 100 MG CAP PO SCH ×2 (09:04→21:06)
[2018-06-02] MEDS: ISOSORBIDE MONO EXTENDED REL 30 MG TABCR PO SCH ×2 (09:05→21:07)
[2018-06-02] MEDS: LISINOPRIL 20 MG TAB PO SCH (09:05)
[2018-06-02] MEDS: dilTIAZem HCL 120 MG CAPCR PO SCH (09:05)
[2018-06-02] MEDS: INSULIN GLARGINE SOLOSTAR 100 UNITS/ML 3 ML PEN SC SCH (09:06)
[2018-06-02] MEDS: INSULIN ASPART 100 UNITS/ML 3 ML PEN SC SCH ×4 (09:07→21:08)
--- NOTE | 2018-06-02 11:11 | Cardiology Progress Note ---
Date of Service June 02, 2018 He is feeling better this morning. He is unaware of any palpitations or fluttering. He denies any chest pain chest pressure chest heaviness. He is having memory issues. He denies any presyncope syncope. His lower extremity edema is markedly improved compared to when I last saw him in the office nearly 20 months ago. He denies any bleeding bruising dark stools or black stools. Physical Exam 2 Vital Signs (Past 24 Hours): Last Vital Signs Temp 36.8 C 06/02/18 07:15 Pulse 94 H 06/02/18 07:15 Resp 17 06/02/18 07:15 BP 122/79 06/02/18 07:15 Pulse Ox 95 06/02/18 07:15 He appears chronically ill. He is in no acute distress. HEENT moderately reduced carotid upstrokes no evidence of carotid bruits jugular venous pressure did not appear elevated his sclera was anicteric Lungs: Clear to auscultation bilaterally no rales rhonchi or wheezing Heart: Irregular rate and rhythm there is a soft systolic ejection murmur Abdomen soft nontender nondistended positive bowel sounds Extremities: Chronic stasis changes of the lower extremities no significant lower extremity edema Neurologic he was awake alert and oriented x3 although he had difficulty with the date and the month initially. Impressions: 1. Medical noncompliance 2. Atrial fibrillation with a rapid ventricular response 3. Coronary artery disease with severe three-vessel CAD 4. Moderate ischemic cardia myopathy 5. Diabetes mellitus type 2 uncontrolled with a hemoglobin A1c greater than 12 6. Hypertension 7. Hyperlipidemia He still has some episodes of atrial fibrillation that are fast. It is unclear as to whether he was even taking most of his medication at home especially in light of a hemoglobin A1c of 12.2. Next I would put him back on his outpatient medication medical regiment including 0.25 mg of digoxin daily along with his standard Toprol dose and Coumadin for goal INR 2-3. When we last saw him 20 months ago he was also on diltiazem 120 mg daily. Given his lower blood pressures I would not add this at this time. We may need to consider this as an outpatient. I would send him home on small dose of diuretics as needed as he previously was if his weight is up 2-3 pounds. In fact his lower extremity edema is markedly better than when I last saw him. I would recommend seeing him in the office in the next 10-14 days. At that point we can reassess his heart rate and adjust his medical regimen. Clinically it does not sound like he is having worsening heart failure or anginal symptoms. He is known to have severe three-vessel coronary artery disease. Given his complex medical problems and his medical noncompliance I would try to treat him with medicine for his coronary disease and ischemic cardia myopathy if that all possible. This was discussed with the hospitalist service. 8. Chronic stable angina
[2018-06-02] MEDS: WARFARIN SOD 6 MG TAB PO SCH (16:59)
[2018-06-02] MEDS: DIGOXIN 0.25 MG TAB PO SCH (16:59)
--- NOTE | 2018-06-02 17:43 | Hospitalist Progress Note ---
Date of Service June 02, 2018 Assessment & Plan (1) Atrial fibrillation with RVR: Likely precipitated by Pneumonia and Non Compliance Continue diltiazem, metoprolol, digoxin: 0.1>>>1.1 Digoxin levels: INR therapeutic Continue Coumadin Monitor INR: 2.2 today Appreciate Cardiology Input Needs FU with Cardiology upn discharge (2) Pneumonia: CXR on admission showed right upper lobe infiltrate with minimal interstitial infiltrate right base. Received Levaquin in the ER Blood Culture: No growth to date Continue doxycycline (3) Hyperglycemia: (4) Uncontrolled diabetes mellitus: HbA1c: 12.2 Non compliance pharmacy for glycemic management Diabetic Education Continue Insulin therapy (5) Elevated troponin: Secondary to demand Ischemia 2/2 Afib RVR Troponin trending down ECHO: moderate global hypokinesis of LV Cardiology following CAD: Continue Aspirin, Metoprolol (6) HTN (hypertension): Stable monitor QTC Prolongation Monitor QTC Avoid QTC prolonging meds as able Depression/Anxiety Patient has not been taking the lexapro Will hold Lexapro for now due to prolong QTC On Ativan PRN at home DVT Px: On coumadin Code Status FULL CODE Disposition: Needs Home Health PT/OT prior to discharge Subjective Patient is seen and examined at bedside Doing much better today Offers no complaints Cough improved Denies chest pain, SOB, palpitations Family at bedside Physical Exam 2 Vital Signs (Past 24 Hours): Last Vital Signs Temp 36.4 C L 06/02/18 15:16 Pulse 89 06/02/18 16:59 Resp 18 06/02/18 15:16 BP 127/79 06/02/18 15:16 Pulse Ox 97 06/02/18 15:16 Physical Exam: Physical Exam: Vitals signs as noted above General Appearance:Moderately built and nourished, no apparent distress Head: normocephalic, Atraumatic Eyes: normal inspection, EOMI Neck: supple, Trachea midline Respiratory/Chest: Normal breath sounds, CTA Cardiovascular: Irregularly Irregular, No murmur Abdomen/GI:Soft, Non tender, Bowel sounds present Extremities/Musculoskelatal:normal inspection, Trace pedal edema Neurologic/Psych:AAOX3, grossly no focal neurological deficits Skin: normal color, warm Results & Data Laboratory Results Short CBC 06/02/18 Range/Units 06:01 WBC 6.92 (4.8-10.8) K/uL Hgb 11.8 L (14.0-18.0) g/dL Hct 36.5 L (42-52) % Plt Count 317 (130-400) K/uL BMP 06/02/18 06:01 Sodium 140 Potassium 3.7 Chloride 109 H Carbon Dioxide 23 BUN 22 H Creatinine 1.00 Glucose 145 H Calcium 7.9 L _ (1) Pneumonia Aspiration pneumonia type: Laterality: Lung location: Pneumonia type: due to unspecified organism
[2018-06-03 06:07] LABS: BUN Creatinine Ratio 25.1 (10-20); Calcium 8.2 mg/dl (8.5-10.1); Creatinine Clr Calc Pharmacy 85.5 ml/min; Est GFR (African American) 90.5; Est GFR (Non-African American) 78.1; Magnesium 1.8 mg/dl (1.8-2.4); Potassium 3.4 mmol/L (3.5-5.1)
[2018-06-03 06:23] LABS: INR 2.7 (0.9-1.1); Prothrombin Time 26.1 Seconds (9.0-12.0)
[2018-06-03] MEDS ORDERED: POTASSIUM CHLORIDE 20 MEQ TABCR PO ONE (06:45)
[2018-06-03] MEDS ORDERED: MAGNESIUM SULFATE / D5W 1 GM/100 ML BAG IV ONE (06:45)
[2018-06-03] MEDS ORDERED: METOPROLOL TARTRATE 100 MG TAB PO SCH (06:45)
[2018-06-03] MEDS: ISOSORBIDE MONO EXTENDED REL 30 MG TABCR PO SCH (07:57)
[2018-06-03] MEDS: ASPIRIN 81 MG ECTAB PO SCH (07:58)
[2018-06-03] MEDS: dilTIAZem HCL 120 MG CAPCR PO SCH (07:58)
[2018-06-03] MEDS: LISINOPRIL 20 MG TAB PO SCH (07:58)
[2018-06-03] MEDS: DOXYCYCLINE HYCLATE 100 MG CAP PO SCH (07:58)
[2018-06-03] MEDS: INSULIN GLARGINE SOLOSTAR 100 UNITS/ML 3 ML PEN SC SCH (08:01)
[2018-06-03] MEDS: INSULIN ASPART 100 UNITS/ML 3 ML PEN SC SCH ×2 (08:01→12:20)
--- NOTE | 2018-06-03 10:35 | Hospitalist Progress Note ---
Date of Service June 03, 2018 Assessment & Plan (1) Atrial fibrillation with RVR: Likely precipitated by Pneumonia and Non Compliance Continue diltiazem, metoprolol, digoxin Digoxin levels:: 0.1>>>1.1 INR therapeutic Continue Coumadin Monitor INR: 2.7 Appreciate Cardiology Input Needs FU with Cardiology upon discharge in 2 weeks (2) Pneumonia: CXR on admission showed right upper lobe infiltrate with minimal interstitial infiltrate right base. Received Levaquin in the ER Blood Culture: No growth to date Continue doxycycline (3) Hyperglycemia: (4) Uncontrolled diabetes mellitus: HbA1c: 12.2 Non compliance pharmacy for glycemic management Diabetic Education Continue Insulin therapy Plan to discharge him on Lantus 60 units QAM and Metformin (5) Elevated troponin: Secondary to demand Ischemia 2/2 Afib RVR Troponin trending down ECHO: moderate global hypokinesis of LV Cardiology following CAD: Continue Aspirin, Metoprolol (6) HTN (hypertension): Stable monitor QTC Prolongation Monitor QTC Avoid QTC prolonging meds as able Depression/Anxiety Patient has not been taking the lexapro Will hold Lexapro for now due to prolong QTC On Ativan PRN at home DVT Px: On coumadin Code Status FULL CODE Disposition: Needs Home Health PT/OT eval done Subjective Patient is seen and examined at bedside No complaints Eager to get discharged Cough much improved Denies chest pain, SOB, palpitations Family at bedside Physical Exam 2 Vital Signs (Past 24 Hours): Last Vital Signs Temp 36.9 C 06/03/18 07:02 Pulse 88 06/03/18 07:02 Resp 22 06/03/18 07:02 BP 123/77 06/03/18 07:02 Pulse Ox 98 06/03/18 07:02 Physical Exam: Physical Exam: Vitals signs as noted above General Appearance:Moderately built and nourished, no apparent distress Head: normocephalic, Atraumatic Eyes: normal inspection, EOMI Neck: supple, Trachea midline Respiratory/Chest: Normal breath sounds, CTA Cardiovascular: Irregularly Irregular, No murmur Abdomen/GI:Soft, Non tender, Bowel sounds present Extremities/Musculoskelatal:normal inspection, Trace pedal edema Neurologic/Psych:AAOX3, grossly no focal neurological deficits Skin: normal color, warm Results & Data Laboratory Results BMP 06/03/18 05:10 Sodium 140 Potassium 3.4 L Chloride 108 H Carbon Dioxide 25 BUN 24 H Creatinine 0.96 Glucose 121 H Calcium 8.2 L _ (1) Pneumonia Aspiration pneumonia type: Laterality: Lung location: Pneumonia type: due to unspecified organism
--- NOTE | 2018-06-03 10:47 | Discharge Summary ---
Date of Service June 03, 2018 Admission HPI Per Admitting Provider 72 year old male with PMH of uncontrolled DM, dyslipidemia, CAD, Afib on coumadin HTN present to the Emergency Room with complaints of constant palpitations for the past week. Pt said that about a week and half ago, he developed upper respiratory infection associated with SOB. He said that since then, he had been feeling a pounding in his chest. He said that lately his symptoms have been getting worst associated with worsening SOB. Pt said that he runs out of breath with exertion. He said that the cough sometimes is productive. He is not sure if he is taking his med correctly. He only brought 6 meds with him in a bag. He does not have the metoprolol and diltiazem. only taking 1 tab of digoxin daily and only taking imdur daily instead of BID. He is not sure how lantus that he is taking. Denies any chest pain, fever, chills and dizziness. Admission Exam Per Admitting Provider General- No acute distress Head- atraumatic Eyes- PERRL, EOMI, ENT- oropharynx clear Neck- supple, no JVD Lungs- clear to auscultation Heart- irregular rhythm/tachycardia Abdomen- normal bowel sounds, soft, nontender Extremities- no calf tenderness Neuro- alert, oriented x 3; PERRL, EOMI; no facial palsy; no dysarthria Skin- warm & dry Principal Diagnosis Discharge Information Discharge Diagnosis Atrial fibrillation with RVR Pneumonia Discharge Goals Decrease discomfort,Improve function,Improve disease control Discharge Activity Limitations Resume your previous activity Discharge Data Allergies Allergy/AdvReac Type Severity Reaction Status Date / Time simvastatin AdvReac Severe leg pain Verified 05/31/18 16:23 Consultations 05/31/18 15:41 ED Decision to Admit Stat 05/31/18 19:54 Consult Cardiology Routine 06/02/18 07:00 Consult Case Management - Discharge Planning Routine Procedures Performed CXR: 1. Right upper lobe infiltrate. 2. Minimal interstitial infiltrate right base. 3. Mild cardia megaly. Hospital Course (1) Atrial fibrillation with RVR: Likely precipitated by Pneumonia and Non Compliance Continue diltiazem, metoprolol, digoxin Digoxin levels:: 0.1>>>1.1 INR therapeutic Continue Coumadin Monitor INR: 2.7 Appreciate Cardiology Input Needs FU with Cardiology upon discharge in 2 weeks (2) Pneumonia: CXR on admission showed right upper lobe infiltrate with minimal interstitial infiltrate right base. Received Levaquin in the ER Blood Culture: No growth to date Continue doxycycline (3) Hyperglycemia: (4) Uncontrolled diabetes mellitus: HbA1c: 12.2 Non compliance pharmacy for glycemic management Diabetic Education Continue Insulin therapy Plan to discharge him on Lantus 60 units QAM and Metformin (5) Elevated troponin: Secondary to demand Ischemia 2/2 Afib RVR Troponin trending down ECHO: moderate global hypokinesis of LV Cardiology following CAD: Continue Aspirin, Metoprolol (6) HTN (hypertension): Stable monitor QTC Prolongation Monitor QTC Avoid QTC prolonging meds as able Depression/Anxiety Patient has not been taking the lexapro Will hold Lexapro for now due to prolong QTC On Ativan PRN at home DVT Px: On coumadin Code Status FULL CODE Disposition: Needs Home Health PT/OT eval done Total Time Total Time Spent Total Time Spent (In Minutes): 37 minutes Total Time Includes: Examination of the Patient, Discharge Planning, Medication Reconciliation, Communication With Other Providers and Other Discharge Plan Discharge Items Patient Disposition: Home - Home Health Services Reason For Visit: PALPITATION Discharge Diagnosis: Atrial fibrillation with RVR Pneumonia Discharge Goals: Decrease discomfort, Improve disease control and Improve function Activity: Resume your previous activity Exercise/Sports: Gradually increase as tolerated Driving/Machine Use Comment: No driving until cleared by your primary care physician Non-emergency contact: Primary Care Provider and Shot Examiner Call non-emergency contact if: you have any medication questions, your symptoms worsen, your pain is not controlled, your pain is worsening, your pain is unusual for you, your pain is concerning for you and you have a fever Diet: Carb Consistent or DM2 and Heart Healthy Addtl Provider Instructions: Follow up with your PCP in 1 week as advised Follow up with your Shot Examiner in 1-2 weeks Follow up with [facility] on 06/04/18 for coumadin dosing Take 3mg coumadin today (06/03/18) Your PT/INR is 2.7 today Complete the antibiotic course as prescribed Take Medications regularly Seek immediate medical attention if your symptoms reoccur or worsen Prescriptions: New doxycycline hyclate 100 mg Capsule 100 mg PO BID 5 Days Qty: 10 RF: 0 diltiazem HCl 120 mg Capsule,Extended Release 24hr 120 mg PO QAM 30 Days Qty: 30 RF: 0 insulin glargine [Lantus Solostar U-100 Insulin] 100 unit/mL (3 mL) Insulin Pen 60 unit SC QAM 30 Days Qty: 2 RF: 1 Continue morphine [MS Contin] 30 mg tablet extended release 30 mg PO TID RF: 0 aspirin [Aspirin Low Dose] 81 mg Tablet,Delayed Release (Dr/Ec) 81 mg PO DAILY RF: 0 warfarin [Coumadin] 5 mg tablet 7.5 mg PO WK RF: 0 warfarin [Coumadin] 5 mg tablet 5 mg PO [id number] RF: 0 nitroglycerin [Nitrostat] 0.4 mg Tablet, Sublingual 0.4 mg Sublingual UD PRN (Reason: Chest Pain) RF: 0 lorazepam [Ativan] 1 mg Tablet 1 mg PO Q8 PRN (Reason: Anxiety) RF: 0 fluticasone [Flonase Allergy Relief] 50 mcg/actuation [place],Suspension 2 spray INTRANASAL DAILY RF: 0 escitalopram oxalate [Lexapro] 20 mg tablet 20 mg PO DAILY RF: 0 lisinopril 20 mg tablet 20 mg PO DAILY RF: 0 furosemide [Lasix] 40 mg Tablet 40 mg PO DAILY PRN (Reason: Edema) 30 Days Qty: 30 RF: 0 metoprolol tartrate 100 mg Tablet 100 mg PO BID 30 Days Qty: 60 RF: 0 isosorbide mononitrate 30 mg tablet extended release 24 hr 30 mg PO BID 30 Days Qty: 60 RF: 0 metformin [Glucophage] 1,000 mg tablet 1,000 mg PO BID 30 Days Qty: 60 RF: 0 digoxin [Digox] 125 mcg tablet 250 mcg PO DAILY 30 Days Qty: 30 RF: 0 Discontinued insulin glargine [Lantus U-100 Insulin] 100 unit/mL Solution 100 unit SUBCUT QPM RF: 0 Stand-Alone Forms: [facility]Other Patient Handouts: Diabetes Care Home Complications, Diabetes Type 2 Coping, Blood Sugar Check, Diabetes Healthy Meals, Diabetes Carbs, Diabetes Eating Out, Diabetes Shopping Preparing Meals, Diabetes Meal Planning, Diabetes Carbs Fats Protein Discharge Orders: Discharge Order (Routine); Ordered 06/03/18 Ordered By: Rigoberto Broderick Admission Data Admit Date/Time: 06/01/18 10:52 Attending Provider: Rigoberto Broderick Admit Provider: Bolivar Fuentes Primary Care Provider: Chai Chang Other Providers: Bolivar Fuentes ; Clyde Martinez Service: Telemetry Other Interventions: Discharge Summary Assessment (RN) Last Done: 06/03/18 11:19 Pending Studies at Discharge: No DC Date/Time DO NOT enter until pt leaves facility: 06/03/18 13:28
[2018-06-03] MEDS ORDERED: WARFARIN SOD 4 MG TAB PO SCH (16:00)
== END 2018-06-03 13:28 | disposition home health service (06) ==
LOC: ED 13:25 → 2S 13:25